=== PATIENT | male | born 1985 | race Caucasian/White ===

== ENCOUNTER 2022-10-25 11:56 | Emergency (ER) | payer MEDICARE, MEDICAID ==
[2022-10-25 12:46] LABS: BASOPHILS ABSOLUTE AUTO 0.01 K/uL (0.02-0.10); BASOPHILS PERCENT AUTO 0.1 % (0.0-0.5); EOSINOPHILS ABSOLUTE AUTO 0.05 K/uL (0.04-0.40); EOSINOPHILS PERCENT AUTO 0.7 % (1.0-5.0); HEMATOCRIT 44.6 % (40.0-54.0); HEMOGLOBIN 15.1 g/dL (13.0-18.0); LYMPHOCYTES ABSOLUTE AUTO 3.93 K/uL (1.50-4.00); LYMPHOCYTES PERCENT AUTO 53.8 % (20.0-40.0); MEAN CORPUSCULAR HEMOGLOBIN 29.8 pg (27.0-32.0); MEAN CORPUSCULAR HGB CONC 33.9 g/dL (31.0-35.0); MEAN CORPUSCULAR VOLUME 88 fL (76-96); MEAN PLATELET VOLUME 9.6 fL (6.0-10.0); MONOCYTES ABSOLUTE AUTO 0.34 K/uL (0.20-0.80); MONOCYTES PERCENT AUTO 4.7 % (3.0-10.0); NEUTROPHILS ABSOLUTE AUTO 2.98 K/uL (2.00-7.50); NEUTROPHILS PERCENT AUTO 40.7 % (45.0-70.0); PLATELET COUNT,PLT 189 K/uL (150-400); RED BLOOD CELL COUNT 5.06 M/uL (4.50-6.50); RED CELL DISTRIBUTION WIDTH 13.4 % (11.0-16.0); WHITE BLOOD CELL COUNT,WBC 7.3 K/uL (4.0-11.0)
[2022-10-25 12:51] LABS: APPEARANCE,URINE CLEAR (CLEAR); BILIRUBIN,URINE NEGATIVE (NEGATIVE); COLOR,URINE YELLOW; GLUCOSE,URINE NEGATIVE (NEGATIVE); KETONES,URINE NEGATIVE (NEGATIVE); LEUKOCYTE ESTERASE,URINE NEGATIVE (NEGATIVE); NITRITE,URINE NEGATIVE (NEGATIVE); OCCULT BLOOD,URINE NEGATIVE (NEGATIVE); PROTEIN,URINE 100 mg/dL (NEGATIVE); UROBILINOGEN,URINE 0.2 E.U./dL (0.2-1.0)
[2022-10-25 13:06] LABS: AMPHETAMINES SCREEN, URINE NEGATIVE (NEGATIVE); BARBITURATE SCREEN,URINE NEGATIVE (NEGATIVE); BENZODIAZEPINES SCREEN,URINE NEGATIVE (NEGATIVE); METHAMPHETAMINES SCREEN, URINE NEGATIVE (NEGATIVE)
[2022-10-25 13:06] LABS: RBC,URINE 0-5 /HPF; SQUAMOUS EPITHELIAL CELLS,UR OCCASIONAL /HPF; WBC,URINE 0-5 /HPF
[2022-10-25 13:07] LABS: METHADONE SCREEN, URINE NEGATIVE (NEGATIVE); OXYCODONE SCREEN,URINE NEGATIVE (NEGATIVE); THC SCREEN,URINE 50 NG/ML NEGATIVE (NEGATIVE)
[2022-10-25 13:13] LABS: HEMOGLOBIN A1C 5.9 % (< 5.7)
[2022-10-25 13:14] LABS: A/G RATIO 0.9 (0.8-2.0); ALANINE AMINOTRANSFERASE,ALT 46 U/L (12-78); ALBUMIN 3.7 g/dL (3.4-5.0); ALKALINE PHOSPHATASE 77 U/L (46-116); ASPARTATE AMNIOTRANSFERASE,AST 21 U/L (15-37); BILIRUBIN TOTAL 0.3 mg/dL (0.0-1.0); BLOOD UREA NITROGEN,BUN 12 mg/dL (8-26); CALCIUM 8.9 mg/dL (8.5-10.1); CARBON DIOXIDE,CO2 29.1 mmol/L (21.0-32.0); CHLORIDE,CL 100 mmol/L (98-107); ESTIMATED GFR 99 mL/min (>60); GLUCOSE RANDOM 180 mg/dL (74-100); POTASSIUM,K 4.1 mmol/L (3.5-5.1); PROTEIN TOTAL,TP 7.6 g/dL (6.4-8.2); SODIUM,NA 141 mmol/L (136-145)
== END 2022-10-25 13:51 | disposition home or self-care (01) ==
LOC: LB.ED 11:56
DX: I87.2 Venous insufficiency (chronic) (peripheral) (principal); I10 Essential (primary) hypertension; J44.9 Chronic obstructive pulmonary disease, unspecified; Z86.16 Personal history of COVID-19; Z79.01 Long term (current) use of anticoagulants; Z79.899 Other long term (current) drug therapy; Z72.0 Tobacco use
CPT/HCPCS: 36415; 80053; 80307; 81001; 83036; 83880; 84443; 85025; 99283

== ENCOUNTER 2022-12-06 09:53 | Emergency (ER) | payer MEDICARE, MEDICAID ==
[2022-12-06] MEDS: Tetracaine HCl/PF 0.5% 4 ML Bottle EYEBOTH ONE (10:54)
[2022-12-06] MEDS: Distilled Water Ophth Irrig Soln 120 ML Bottle EYEBOTH ONE (10:55)
[2022-12-06] MEDS ORDERED: Ciprofloxacin 0.3% Ophth Soln 2.5 ML Bottle ONE (11:00)
[2022-12-06 11:27] VITALS: BP 131/72; PULSE 92
== END 2022-12-06 11:10 | disposition home or self-care (01) ==
LOC: LB.ED 09:53
DX: B30.9 Viral conjunctivitis, unspecified (principal); J44.9 Chronic obstructive pulmonary disease, unspecified; I10 Essential (primary) hypertension; F17.210 Nicotine dependence, cigarettes, uncomplicated; E66.9 Obesity, unspecified; Z68.36 Body mass index [BMI] 36.0-36.9, adult; Z86.16 Personal history of COVID-19; Z79.899 Other long term (current) drug therapy
CPT/HCPCS: 99283; A9270-GY

== ENCOUNTER 2023-01-16 14:00 | Emergency (ER) | payer MEDICARE, MEDICAID ==
[2023-01-16 15:12] LABS: INFLUENZA A NAA NEGATIVE (NEGATIVE); INFLUENZA B NAA NEGATIVE (NEGATIVE); RESPIRATORY SYNCYTIAL VIR NAA NEGATIVE (NEGATIVE)
[2023-01-16 15:14] LABS: CORONAVIRUS COVID-19 NAA NEGATIVE (NEGATIVE)
[2023-01-16] MEDS ORDERED: Albuterol/Ipratropium 3.0-0.5 MG/3 ML Neb Soln ONE (15:22)
[2023-01-16] MEDS ORDERED: Albuterol/Ipratropium 3.0-0.5 MG/3 ML Neb Soln NEB SCH (15:30)
[2023-01-16] MEDS ORDERED: Albuterol 0.083% 2.5 MG/3 ML Neb Soln NEB ONE (15:46)
[2023-01-16] MEDS ORDERED: Albuterol 0.083% 2.5 MG/3 ML Neb Soln ONE (15:49)
[2023-01-16] MEDS ORDERED: predniSONE 10 MG Tab ONE (16:00)
[2023-01-16] MEDS ORDERED: Azithromycin 250 MG Tab ONE (16:00)
== END 2023-01-16 16:15 | disposition home or self-care (01) ==
LOC: LB.ED 14:00
DX: J21.9 Acute bronchiolitis, unspecified (principal); J44.0 Chronic obstructive pulmonary disease with (acute) lower respiratory infection; E66.9 Obesity, unspecified; I10 Essential (primary) hypertension; F17.210 Nicotine dependence, cigarettes, uncomplicated; Z20.822 Contact with and (suspected) exposure to COVID-19; Z79.899 Other long term (current) drug therapy; Z79.01 Long term (current) use of anticoagulants; Z68.42 Body mass index [BMI] 45.0-49.9, adult
CPT/HCPCS: 0241U; 71045; 87430; 94640; 99284; A9270-GY; J7512; J7620

== ENCOUNTER 2023-02-09 16:13 | Emergency (ER) | payer MEDICARE, MEDICAID ==
[2023-02-09] MEDS ORDERED: LORazepam 2 MG/ML SDV IVPUSH ONE (16:30)
[2023-02-09] MEDS ORDERED: Sodium Chloride 0.9% 10 ML Syringe FLUSH PRN (16:31)
[2023-02-09] MEDS ORDERED: levETIRAcetam 1,000 MG in Sodium Chloride 0.9% 100 ML IV ONE (16:39)
[2023-02-09 16:41] LABS: HEMATOCRIT 47.2 % (40.0-54.0); HEMOGLOBIN 16.2 g/dL (13.0-18.0); MEAN CORPUSCULAR HEMOGLOBIN 29.8 pg (27.0-32.0); MEAN CORPUSCULAR HGB CONC 34.3 g/dL (31.0-35.0); MEAN PLATELET VOLUME 9.7 fL (6.0-10.0); RED BLOOD CELL COUNT 5.44 M/uL (4.50-6.50); RED CELL DISTRIBUTION WIDTH 13.4 % (11.0-16.0); WHITE BLOOD CELL COUNT,WBC 7.7 K/uL (4.0-11.0)
[2023-02-09 17:00] LABS: ANION GAP 13.4 mmol/L (5.0-15.0); CALCIUM 8.9 mg/dL (8.5-10.1); CARBON DIOXIDE,CO2 29.2 mmol/L (21.0-32.0); EST CRCL DRUG DOSING (CG) 100.16 mL/min; MAGNESIUM 1.9 mg/dL (1.8-2.4); PHOSPHORUS 3.8 mg/dL (2.5-4.9); POTASSIUM,K 3.6 mmol/L (3.5-5.1)
[2023-02-09] MEDS ORDERED: levETIRAcetam 500 MG/5 ML SDV ONE (17:40)
== END 2023-02-09 18:10 | disposition home or self-care (01) ==
LOC: LB.ED 16:13
DX: G40.909 Epilepsy, unspecified, not intractable, without status epilepticus (principal); Z91.148 Patient's other noncompliance with medication regimen for other reason; I10 Essential (primary) hypertension; J44.9 Chronic obstructive pulmonary disease, unspecified; E66.9 Obesity, unspecified; Z68.41 Body mass index [BMI] 40.0-44.9, adult; Z86.16 Personal history of COVID-19; Z79.899 Other long term (current) drug therapy
CPT/HCPCS: 36415; 80048; 83735; 84100; 85027; 96374; 96375; 99283; 99284-25; J1953; J2060; J3490

== ENCOUNTER 2023-03-06 12:58 | Emergency (ER) | payer MEDICAID, MEDICARE ==
[2023-03-06] MEDS ORDERED: LORazepam 2 MG/ML SDV IVPUSH ONE (13:10)
[2023-03-06] MEDS ORDERED: levETIRAcetam 500 MG in Sodium Chloride 0.9% 100 ML IV ONE (13:10)
[2023-03-06] MEDS ORDERED: Sodium Chloride 0.9% 10 ML Syringe FLUSH PRN (13:11)
[2023-03-06] MEDS ORDERED: Sodium Chloride 0.9% 1,000 ML IV SCH (13:15)
[2023-03-06 13:55] LABS: HEMATOCRIT 47.5 % (40.0-54.0); HEMOGLOBIN 16.2 g/dL (13.0-18.0); MEAN CORPUSCULAR HEMOGLOBIN 29.8 pg (27.0-32.0); MEAN CORPUSCULAR HGB CONC 34.1 g/dL (31.0-35.0); MEAN PLATELET VOLUME 9.4 fL (6.0-10.0); RED BLOOD CELL COUNT 5.44 M/uL (4.50-6.50); RED CELL DISTRIBUTION WIDTH 13.4 % (11.0-16.0); WHITE BLOOD CELL COUNT,WBC 7.2 K/uL (4.0-11.0)
[2023-03-06 14:12] LABS: A/G RATIO 0.9 (0.8-2.0); ALBUMIN 3.6 g/dL (3.4-5.0); ANION GAP 9.9 mmol/L (5.0-15.0); BILIRUBIN TOTAL 0.3 mg/dL (0.0-1.0); BUN/CREATININE RATIO 10.8 (6-25); CALCIUM 10.2 mg/dL (8.5-10.1); CARBON DIOXIDE,CO2 33.3 mmol/L (21.0-32.0); CREATININE 0.93 mg/dL (0.70-1.30); EST CRCL DRUG DOSING (CG) 106.64 mL/min; MAGNESIUM 1.6 mg/dL (1.8-2.4); PHOSPHORUS 5.1 mg/dL (2.5-4.9); POTASSIUM,K 4.2 mmol/L (3.5-5.1); PROTEIN TOTAL,TP 7.5 g/dL (6.4-8.2)
== END 2023-03-06 16:07 | disposition home or self-care (01) ==
LOC: LB.ED 12:58
DX: E83.42 Hypomagnesemia (principal); G40.909 Epilepsy, unspecified, not intractable, without status epilepticus; I10 Essential (primary) hypertension; J44.9 Chronic obstructive pulmonary disease, unspecified; E66.9 Obesity, unspecified; Z68.42 Body mass index [BMI] 45.0-49.9, adult; Z86.16 Personal history of COVID-19; Z79.899 Other long term (current) drug therapy; Z79.01 Long term (current) use of anticoagulants
CPT/HCPCS: 36415; 80053; 83735; 84100; 85027; 96361; 96365; 96367; 96375; 99284; 99284-25; A0425; A0429; J1953; J2060; J3475; J3490; J7030

== ENCOUNTER 2023-05-20 12:14 | Emergency (ER) | payer MEDICARE, MEDICAID | END 2023-05-20 12:55 | disposition home or self-care (01) | LOC: LB.ED 12:14 | DX: M72.2 Plantar fascial fibromatosis (principal); J44.9 Chronic obstructive pulmonary disease, unspecified; I10 Essential (primary) hypertension; Z79.01 Long term (current) use of anticoagulants; E66.9 Obesity, unspecified; Z68.41 Body mass index [BMI] 40.0-44.9, adult; Z79.899 Other long term (current) drug therapy | CPT/HCPCS: 99283 ==

== ENCOUNTER 2023-10-15 15:57 | Emergency (ER) | payer MEDICARE, MEDICAID ==
[2023-10-15] MEDS ORDERED: Sodium Chloride 0.9% 10 ML Syringe FLUSH PRN (16:28)
[2023-10-15] MEDS: levETIRAcetam 1,000 MG in Sodium Chloride 0.9% 100 ML IV ONE (16:29)
[2023-10-15] MEDS: Lactated Ringers 1,000 ML IV SCH (16:29)
[2023-10-15] MEDS: LORazepam 2 MG/ML SDV IVPUSH ONE (16:36)
[2023-10-15 16:38] LABS: HEMATOCRIT 43.9 % (40.0-54.0); HEMOGLOBIN 15.1 g/dL (13.0-18.0); MEAN CORPUSCULAR HEMOGLOBIN 29.4 pg (27.0-32.0); MEAN CORPUSCULAR HGB CONC 34.4 g/dL (31.0-35.0); MEAN PLATELET VOLUME 10.1 fL (6.0-10.0); RED BLOOD CELL COUNT 5.13 M/uL (4.50-6.50); RED CELL DISTRIBUTION WIDTH 13.1 % (11.0-16.0); WHITE BLOOD CELL COUNT,WBC 9.6 K/uL (4.0-11.0)
[2023-10-15 16:49] LABS: A/G RATIO 1.1 (0.8-2.0); ALBUMIN 3.9 g/dL (3.4-5.0); ANION GAP 13.6 mmol/L (5.0-15.0); BILIRUBIN TOTAL 0.7 mg/dL (0.0-1.0); BUN/CREATININE RATIO 9.8 (6-25); CALCIUM 8.7 mg/dL (8.5-10.1); CARBON DIOXIDE,CO2 27.3 mmol/L (21.0-32.0); CREATININE 1.02 mg/dL (0.70-1.30); EST CRCL DRUG DOSING (CG) 97.23 mL/min; MAGNESIUM 2.1 mg/dL (1.8-2.4); POTASSIUM,K 3.9 mmol/L (3.5-5.1); PROTEIN TOTAL,TP 7.6 g/dL (6.4-8.2)
[2023-10-15] MEDS: Lactated Ringers 1,000 ML IV ONE (20:15)
== END 2023-10-15 22:05 | disposition home or self-care (01) ==
LOC: LB.ED 15:57
DX: R56.9 Unspecified convulsions (principal); I48.91 Unspecified atrial fibrillation; I10 Essential (primary) hypertension; Z79.899 Other long term (current) drug therapy; Z79.01 Long term (current) use of anticoagulants; Z91.119 Patient's noncompliance with dietary regimen due to unspecified reason
CPT/HCPCS: 36415; 80053; 80307; 83735; 84100; 85027; 96361; 96365; 96375; 99284; J1953; J2060; J3490; J7120

== ENCOUNTER 2023-12-18 07:55 | Emergency (ER) | payer OTHER, MEDICARE, MEDICAID | END 2023-12-18 10:21 | disposition home or self-care (01) | LOC: LB.ED 07:55 | DX: S80.01XA Contusion of right knee, initial encounter (principal); I10 Essential (primary) hypertension; J44.9 Chronic obstructive pulmonary disease, unspecified; E66.9 Obesity, unspecified; V89.2XXA Person injured in unspecified motor-vehicle accident, traffic, initial encounter | CPT/HCPCS: 73562-RT; 99283 ==

== ENCOUNTER 2023-12-20 09:42 | Emergency (ER) | payer MEDICARE, MEDICAID | END 2023-12-20 10:44 | disposition home or self-care (01) | LOC: LB.ED 09:42 | DX: S80.211D Abrasion, right knee, subsequent encounter (principal); I10 Essential (primary) hypertension; J45.909 Unspecified asthma, uncomplicated; E66.9 Obesity, unspecified; Z68.41 Body mass index [BMI] 40.0-44.9, adult; Z79.899 Other long term (current) drug therapy | CPT/HCPCS: 99283 ==

== ENCOUNTER 2024-03-06 14:47 | Emergency (ER) | payer MEDICARE, MEDICAID ==
[2024-03-06] MEDS: GI Cocktail Oral Solution 30 ML PO ONE (15:10)
[2024-03-06] MEDS: Pantoprazole 40 MG Vial IVPUSH ONE (15:31)
[2024-03-06] MEDS: Sodium Chloride 0.9% 1,000 ML IV ONE (15:38)
[2024-03-06] MEDS: Pantoprazole 40 MG Vial ONE (15:40)
[2024-03-06 15:45] LABS: BASOPHILS ABSOLUTE AUTO 0.02 K/uL (0.02-0.10); BASOPHILS PERCENT AUTO 0.2 % (0.0-0.5); EOSINOPHILS ABSOLUTE AUTO 0.09 K/uL (0.04-0.40); HEMATOCRIT 46.8 % (40.0-54.0); LYMPHOCYTES ABSOLUTE AUTO 3.11 K/uL (1.50-4.00); LYMPHOCYTES PERCENT AUTO 33.5 % (20.0-40.0); MEAN CORPUSCULAR HEMOGLOBIN 29.2 pg (27.0-32.0); MEAN CORPUSCULAR HGB CONC 34.2 g/dL (31.0-35.0); MEAN CORPUSCULAR VOLUME 85 fL (76-96); MONOCYTES ABSOLUTE AUTO 0.71 K/uL (0.20-0.80); MONOCYTES PERCENT AUTO 7.6 % (3.0-10.0); NEUTROPHILS ABSOLUTE AUTO 5.36 K/uL (2.00-7.50); NEUTROPHILS PERCENT AUTO 57.7 % (45.0-70.0); PLATELET COUNT,PLT 210 K/uL (150-400); RED BLOOD CELL COUNT 5.48 M/uL (4.50-6.50); WHITE BLOOD CELL COUNT,WBC 9.3 K/uL (4.0-11.0)
[2024-03-06 15:51] LABS: C-REACTIVE PROTEIN 10.3 mg/L (<5.0)
[2024-03-06 15:57] LABS: A/G RATIO 0.9 (0.8-2.0); ALBUMIN 3.7 g/dL (3.4-5.0); ANION GAP 13.8 mmol/L (5.0-15.0); BILIRUBIN TOTAL 0.5 mg/dL (0.0-1.0); BUN/CREATININE RATIO 12.8 (6-25); CALCIUM 8.8 mg/dL (8.5-10.1); CARBON DIOXIDE,CO2 28.9 mmol/L (21.0-32.0); CREATININE 0.94 mg/dL (0.70-1.30); EST CRCL DRUG DOSING (CG) 104.46 mL/min; POTASSIUM,K 3.7 mmol/L (3.5-5.1); PROTEIN TOTAL,TP 7.9 g/dL (6.4-8.2)
[2024-03-06 16:09] LABS: APPEARANCE,URINE CLEAR (CLEAR); COLOR,URINE YELLOW
[2024-03-06 16:10] LABS: BILIRUBIN,URINE NEGATIVE (NEGATIVE); GLUCOSE,URINE NEGATIVE (NEGATIVE); KETONES,URINE NEGATIVE (NEGATIVE); LEUKOCYTE ESTERASE,URINE NEGATIVE (NEGATIVE); NITRITE,URINE NEGATIVE (NEGATIVE); OCCULT BLOOD,URINE NEGATIVE (NEGATIVE); PROTEIN,URINE NEGATIVE (NEGATIVE); RBC,URINE NOT SEEN /HPF; UROBILINOGEN,URINE >=8.0 E.U./dL (0.2-1.0); WBC,URINE NOT SEEN /HPF
== END 2024-03-06 16:45 | disposition home or self-care (01) ==
LOC: LB.ED 14:47
DX: K29.00 Acute gastritis without bleeding (principal); I10 Essential (primary) hypertension; J44.9 Chronic obstructive pulmonary disease, unspecified; E66.9 Obesity, unspecified; Z68.41 Body mass index [BMI] 40.0-44.9, adult
CPT/HCPCS: 36415; 74176; 80053; 81001; 83690; 85025; 86140; 96361; 96374; 99284-25; A9270-GY; J2470; J7030

== ENCOUNTER 2024-04-03 08:42 | Emergency (ER) | payer MEDICARE, MEDICAID ==
[2024-04-03 10:04] LABS: BASOPHILS ABSOLUTE AUTO 0.02 K/uL (0.02-0.10); BASOPHILS PERCENT AUTO 0.2 % (0.0-0.5); EOSINOPHILS ABSOLUTE AUTO 0.08 K/uL (0.04-0.40); EOSINOPHILS PERCENT AUTO 0.9 % (1.0-5.0); HEMATOCRIT 44.5 % (40.0-54.0); HEMOGLOBIN 15.1 g/dL (13.0-18.0); LYMPHOCYTES ABSOLUTE AUTO 2.33 K/uL (1.50-4.00); LYMPHOCYTES PERCENT AUTO 27.6 % (20.0-40.0); MEAN CORPUSCULAR HEMOGLOBIN 29.3 pg (27.0-32.0); MEAN CORPUSCULAR HGB CONC 33.9 g/dL (31.0-35.0); MEAN CORPUSCULAR VOLUME 86 fL (76-96); MEAN PLATELET VOLUME 9.6 fL (6.0-10.0); MONOCYTES PERCENT AUTO 8.3 % (3.0-10.0); NEUTROPHILS ABSOLUTE AUTO 5.32 K/uL (2.00-7.50); PLATELET COUNT,PLT 217 K/uL (150-400); RED BLOOD CELL COUNT 5.15 M/uL (4.50-6.50); RED CELL DISTRIBUTION WIDTH 13.5 % (11.0-16.0); WHITE BLOOD CELL COUNT,WBC 8.5 K/uL (4.0-11.0)
[2024-04-03 10:23] LABS: APPEARANCE,URINE CLEAR (CLEAR); COLOR,URINE YELLOW
[2024-04-03 10:24] LABS: ALBUMIN 4.3 g/dL (3.4-5.0); ANION GAP 9.4 mmol/L (5.0-15.0); BILIRUBIN TOTAL 0.8 mg/dL (0.0-1.0); BUN/CREATININE RATIO 10.6 (6-25); CALCIUM 10.9 mg/dL (8.5-10.1); CARBON DIOXIDE,CO2 34.1 mmol/L (21.0-32.0); CREATININE 1.13 mg/dL (0.70-1.30); EST CRCL DRUG DOSING (CG) 86.9 mL/min; POTASSIUM,K 4.5 mmol/L (3.5-5.1); PROTEIN TOTAL,TP 8.4 g/dL (6.4-8.2)
[2024-04-03 10:24] LABS: BILIRUBIN,URINE NEGATIVE (NEGATIVE); GLUCOSE,URINE NEGATIVE (NEGATIVE); KETONES,URINE NEGATIVE (NEGATIVE); LEUKOCYTE ESTERASE,URINE NEGATIVE (NEGATIVE); NITRITE,URINE NEGATIVE (NEGATIVE); OCCULT BLOOD,URINE NEGATIVE (NEGATIVE); PH,URINE 5.5 (5.0-8.0); PROTEIN,URINE NEGATIVE (NEGATIVE); UROBILINOGEN,URINE 0.2 E.U./dL (0.2-1.0)
[2024-04-03] MEDS: Sodium Chloride 0.9% 50 ML SDV FLUSH ONE (10:52)
[2024-04-03] MEDS: Iopamidol 612 MG/ML 100 ML Bottle IV SCH (10:52)
== END 2024-04-03 12:47 | disposition home or self-care (01) ==
LOC: LB.ED 08:42
DX: M54.6 Pain in thoracic spine (principal); I10 Essential (primary) hypertension; J44.89 Other specified chronic obstructive pulmonary disease; E66.9 Obesity, unspecified; F17.210 Nicotine dependence, cigarettes, uncomplicated; Z68.44 Body mass index [BMI] 60.0-69.9, adult
CPT/HCPCS: 36415; 71046; 74177; 80053; 81003; 85025; 99284; J3490; Q9967; 99283

== ENCOUNTER 2024-04-11 18:05 | Emergency (ER) | payer MEDICAID, MEDICARE ==
[2024-04-11 18:56] LABS: BASOPHILS ABSOLUTE AUTO 0.01 K/uL (0.02-0.10); BASOPHILS PERCENT AUTO 0.1 % (0.0-0.5); EOSINOPHILS ABSOLUTE AUTO 0.13 K/uL (0.04-0.40); EOSINOPHILS PERCENT AUTO 1.6 % (1.0-5.0); HEMATOCRIT 41.4 % (40.0-54.0); HEMOGLOBIN 13.8 g/dL (13.0-18.0); LYMPHOCYTES ABSOLUTE AUTO 2.67 K/uL (1.50-4.00); LYMPHOCYTES PERCENT AUTO 33.8 % (20.0-40.0); MEAN CORPUSCULAR HGB CONC 33.3 g/dL (31.0-35.0); MEAN CORPUSCULAR VOLUME 87 fL (76-96); MONOCYTES ABSOLUTE AUTO 0.59 K/uL (0.20-0.80); MONOCYTES PERCENT AUTO 7.5 % (3.0-10.0); NEUTROPHILS ABSOLUTE AUTO 4.49 K/uL (2.00-7.50); PLATELET COUNT,PLT 193 K/uL (150-400); RED BLOOD CELL COUNT 4.76 M/uL (4.50-6.50); RED CELL DISTRIBUTION WIDTH 13.4 % (11.0-16.0); WHITE BLOOD CELL COUNT,WBC 7.9 K/uL (4.0-11.0)
[2024-04-11 19:14] LABS: ANION GAP 9.9 mmol/L (5.0-15.0); CALCIUM 8.3 mg/dL (8.5-10.1); CARBON DIOXIDE,CO2 32.4 mmol/L (21.0-32.0); CREATININE 1.09 mg/dL (0.70-1.30); EST CRCL DRUG DOSING (CG) 90.09 mL/min; POTASSIUM,K 4.3 mmol/L (3.5-5.1)
[2024-04-11] MEDS: Loperamide 2 MG Cap PO ONE (19:43)
== END 2024-04-11 19:50 | disposition home or self-care (01) ==
LOC: LB.ED 18:05
DX: K52.9 Noninfective gastroenteritis and colitis, unspecified (principal); I10 Essential (primary) hypertension; J44.89 Other specified chronic obstructive pulmonary disease; E66.9 Obesity, unspecified; F17.210 Nicotine dependence, cigarettes, uncomplicated; Z68.41 Body mass index [BMI] 40.0-44.9, adult; Z79.899 Other long term (current) drug therapy
CPT/HCPCS: 36415; 80048; 85025; 87507; 99283; 99284; A9270

== ENCOUNTER 2024-04-14 16:15 | Emergency (ER) | payer MEDICARE, MEDICAID | END 2024-04-14 17:15 | disposition home or self-care (01) | LOC: LB.ED 16:15 | DX: R60.0 Localized edema (principal); I10 Essential (primary) hypertension; J44.9 Chronic obstructive pulmonary disease, unspecified; E66.9 Obesity, unspecified; F17.200 Nicotine dependence, unspecified, uncomplicated; Z68.42 Body mass index [BMI] 45.0-49.9, adult | CPT/HCPCS: 99283 ==

== ENCOUNTER 2024-04-20 08:35 | Emergency (ER) | payer MEDICARE, MEDICAID ==
[2024-04-20 09:38] LABS: HEMATOCRIT 38.1 % (40.0-54.0); HEMOGLOBIN 12.9 g/dL (13.0-18.0); MEAN CORPUSCULAR HEMOGLOBIN 29.2 pg (27.0-32.0); MEAN CORPUSCULAR HGB CONC 33.9 g/dL (31.0-35.0); MEAN PLATELET VOLUME 9.3 fL (6.0-10.0); RED BLOOD CELL COUNT 4.42 M/uL (4.50-6.50); RED CELL DISTRIBUTION WIDTH 13.2 % (11.0-16.0); WHITE BLOOD CELL COUNT,WBC 7.7 K/uL (4.0-11.0)
[2024-04-20] MEDS: Bacitracin Oint 1 GM U/D Packet TOP ONE (10:52)
== END 2024-04-20 10:50 | disposition home or self-care (01) ==
LOC: LB.ED 08:35
DX: I82.4Z2 Acute embolism and thrombosis of unspecified deep veins of left distal lower extremity (principal); L03.116 Cellulitis of left lower limb; L03.115 Cellulitis of right lower limb; I48.91 Unspecified atrial fibrillation; I10 Essential (primary) hypertension; J44.89 Other specified chronic obstructive pulmonary disease; E66.9 Obesity, unspecified; Z68.42 Body mass index [BMI] 45.0-49.9, adult; Z79.01 Long term (current) use of anticoagulants; Z79.899 Other long term (current) drug therapy
CPT/HCPCS: 36415; 85027; 85379; 99283; 99284